=== PATIENT | male | born 2000 | race Caucasian/White ===

== ENCOUNTER → 2019-09-21 | Outpatient (CLI) | payer SELFPAY ==
--- NOTE | 2019-09-21 | TISS_PTH ---
PATIENT: VENANCIO BARAJAS LOC: [facility] U#:[id number] AGE/SX: 19/M ROOM: RE09/21/[address]: Dr. Evan Leyva DDS : 2000 BED: DIS: 09/21/2019 SPEC #: [id number] RECD: 09/21/19 10:17 STATUS: ABRAM JACK #: [id number] DOLORES: 09/21/19 00:[address]: Evan Leyva DEPT: SURGICAL PATHOLOGY RECD BY: Jordon Peralta Tissues: Mandible, NOS Procedures: Surgery Specimen Level IV HEADER OPERATION: Biopsy mandible PRE-OP DIAGNOSIS: Mandible cyst TISSUE SUBMITTED: Cystic tissue mandible MICROSCOPIC DIAGNOSIS Mandible cyst, biopsy: Consistent with markedly inflamed odontogenic keratocyst. See comment. ENZO:[email or web address] 09/22/19 COMMENT Correlation with clinical, radiologic findings and appropriate follow up are necessary. This case is discussed with Dr. Leyva on 09/22/19. MICROSCOPIC DESCRIPTION Slides are reviewed. GROSS DESCRIPTION Received in fixative is one container labeled with the patient's name and designated tissue mandible. The specimen consists of a piece of de [place] rosa-pink soft tissue measuring 1.5 x 1.5 x 0.3 cm. The specimen appears to consist of a collapsed cyst. The specimen is bisected and submitted entirely in one cassette. / SJ:michael 09/21/19 TC:5 CPT: 06449
== END | disposition home or self-care (01) ==
LOC: LABSPEC 10:28
PROVIDERS: Referring Provider Dentist Oral and Maxillofacial Surgery; Visit Provider Dentist Oral and Maxillofacial Surgery
DX: M27.49 Other cysts of jaw (principal)
CPT/HCPCS: 88305